=== PATIENT | female | born 1955 | race Caucasian/White ===

== ENCOUNTER 2019-05-10 19:47 | Emergency (ER) | payer MEDICARE, OTHER ==
[2019-05-10] MEDS ORDERED: Ondansetron 4 MG/2 ML SDV IVPUSH ONE (20:56)
[2019-05-10] MEDS ORDERED: fentaNYL 100 MCG/2 ML SDV IVPUSH ONE (20:56)
[2019-05-10] MEDS ORDERED: Sodium Chloride 0.9% 10 ML Syringe FLUSH PRN (20:56)
--- NOTE | 2019-05-10 20:59 | EDM.PDOC ---
ED HPI GENERAL MEDICAL PROBLEM - General Chief Complaint: Gastrointestinal Problem Stated Complaint: NAUSEA,DIZZY,HEADACHE,CHILLS Time Seen by Provider: 05/10/19 20:51 Source of Information: Reports: Patient, Family, RN Notes Reviewed History Limitations: Reports: No Limitations - History of Present Illness INITIAL COMMENTS - FREE TEXT/NARRATIVE: 63-year-old female presents emergency department today complaint of abdominal pain, she states this abdominal pain for the last couple days does wax and wane no change with food no nausea and vomiting no diarrhea no difficulty breathing no shortness of breath has had chills but no fevers since the headache and sore throat, however the sore throat now has resolved abdominal Pain Score (Numeric/FACES): 6 - Related Data Allergies Allergy/AdvReac Type Severity Reaction Status Date / Time erythromycin base Allergy Nausea Verified 05/10/19 20:18 Home Meds: Home Meds Hydrocortisone Acetate [Anucort-HC] 25 mg RECTAL BID PRN 12/03/17 [History] Ketoconazole [Nizoral 2% Crm] 1 applic TOP BID 12/03/17 [History] Past Medical History Cardiovascular History: Reports: Afib Musculoskeletal History: Reports: Back Pain, Chronic, Other (See Below) Other Musculoskeletal History: right hand pain - Past Surgical History Cardiovascular Surgical History: Reports: Other (See Below) Other Cardiovascular Surgeries/Procedures: ablasion GI Surgical History: Reports: Colonoscopy Musculoskeletal Surgical History: Reports: Arthroscopic Knee Oncologic Surgical History: Reports: Other (See Below) Other Oncologic Surgeries/Procedures: precancer noted in colonoscpy Social & Family History - Tobacco Use Smoking Status *Q: Current Every Day Smoker Years of Tobacco use: 35 Packs/Tins Daily: 0.5 - Caffeine Use Caffeine Use: Reports: Coffee, Soda, Tea - Recreational Drug Use Recreational Drug Use: No ED ROS GENERAL - Review of Systems Review Of Systems: See Below Constitutional: Reports: Chills HEENT: Reports: No Symptoms Respiratory: Reports: No Symptoms Cardiovascular: Reports: No Symptoms GI/Abdominal: Reports: Abdominal Pain, Flatus. Denies: Constipation, Diarrhea, Nausea, Vomiting : Reports: No Symptoms Musculoskeletal: Reports: No Symptoms Skin: Reports: No Symptoms ED EXAM, GI/ABD - Physical Exam Exam: See Below Exam Limited By: No Limitations General Appearance: Alert, WD/WN, No Apparent Distress Throat/Mouth: Normal Inspection, Normal Lips, Normal Teeth, Normal Gums, Normal Oropharynx, Normal Voice, No Airway Compromise Head: Atraumatic, Normocephalic Neck: Normal Inspection, Supple, Non-Tender, Full Range of Motion Respiratory/Chest: No Respiratory Distress, Lungs Clear, Normal Breath Sounds, No Accessory Muscle Use, Chest Non-Tender Cardiovascular: Regular Rate, Rhythm, No Murmur GI/Abdominal Exam: Normal Bowel Sounds, Soft, No Organomegaly, No Distention, No Abnormal Bruit, No Mass, Tender (Epigastric region) Course - Vital Signs Last Recorded V/S: Last Vital Signs Temp 97.0 F 05/10/19 20:17 Pulse 67 05/10/19 20:17 Resp 17 05/10/19 20:17 BP 111/56 L 05/10/19 20:17 Pulse Ox 95 05/10/19 20:17 - Orders/Labs/Meds Orders: Active Orders 24 hr Category Date Time Status Peripheral IV Care [RC] . DIRECTED Care 05/10/19 20:57 Active UA W/MICROSCOPIC [URIN] Urgent Lab 05/10/19 23:11 Ordered Iopamidol [Isovue-300 (61%)] Med 05/10/19 22:00 Active 76 ml IV . DIRECTED Lactated Ringers [Ringers, Lactated] 1,000 ml Med 05/10/19 21:00 Active IV ASDIRECTED Sodium Chloride 0.9% [Normal Saline] 80 ml Med 05/10/19 22:00 Active IV ASDIRECTED Sodium Chloride 0.9% [Saline Flush] Med 05/10/19 20:56 Active 10 ml FLUSH ASDIRECTED PRN Peripheral IV Insertion Adult [OM.PC] Urgent Oth 05/10/19 20:56 Ordered Medication Orders Lactated Ringer's (Ringers, Lactated) 1,000 mls @ 999 mls/hr IV ASDIRECTED [facility] Last Admin: 05/10/19 21:16 Dose: 999 mls/hr Sodium Chloride (Normal Saline) 80 mls @ 3 mls/sec IV ASDIRECTED [facility]ANDA Last Admin: 05/10/19 22:26 Dose: 3 mls/sec Iopamidol (Isovue-300 (61%)) 76 ml IV . DIRECTED [facility] Last Admin: 05/10/19 22:26 Dose: 76 ml Sodium Chloride (Saline Flush) 10 ml FLUSH ASDIRECTED PRN PRN Reason: Keep Vein Open Last Admin: 05/10/19 21:16 Dose: 10 ml Labs: Laboratory Tests 05/10/19 05/10/19 05/10/19 Range/Units 21:11 21:11 21:11 WBC 5.1 (4.5-11.0) K/uL RBC 4.54 (3.30-5.50) M/uL Hgb 14.3 (12.0-15.0) g/dL Hct 42.5 (36.0-48.0) % MCV 94 (80-98) fL MCH 32 H (27-31) pg MCHC 34 (32-36) % Plt Count 131 L (150-400) K/uL Neut % (Auto) 86 H (36-66) % Lymph % (Auto) 9 L (24-44) % Whitfield % (Auto) 5 (2-6) % Eos % (Auto) 0 L (2-4) % Baso % (Auto) 0 (0-1) % Sodium 128 L (140-148) mmol/L Potassium 3.9 (3.6-5.2) mmol/L Chloride 94 L (100-108) mmol/L Carbon Dioxide 26 (21-32) mmol/L Anion Gap 11.9 (5.0-14.0) mmol/L BUN 12 (7-18) mg/dL Creatinine 0.8 (0.6-1.0) mg/dL Est Cr Clr Drug Dosing 57.87 mL/min Estimated GFR (MDRD) > 60 (>60) Glucose 96 (74-106) mg/dL Lactic Acid 1.0 (0.4-2.0) mmol/L Calcium 8.2 L (8.5-10.1) mg/dL Total Bilirubin 0.5 (0.2-1.0) mg/dL AST 37 (15-37) U/L ALT 35 (12-78) U/L Alkaline Phosphatase 67 (46-116) U/L Total Protein 6.3 L (6.4-8.2) g/dL Albumin 3.2 L (3.4-5.0) g/dL Globulin 3.1 (2.3-3.5) g/dL Albumin/Globulin Ratio 1.0 L (1.2-2.2) Lipase 104 (73-393) U/L Meds: Medications Generic Name Dose Route Start Last Admin Trade Name Freq PRN Reason Stop Dose Admin Lactated Ringer's 1,000 mls @ 999 mls/hr 05/10/19 21:00 05/10/19 21:16 Ringers, Lactated IV 999 mls/hr ASDIRECTED AMANDA Administration Sodium Chloride 80 mls @ 3 mls/sec 05/10/19 22:00 05/10/19 22:26 Normal Saline IV 3 mls/sec ASDIRECTED AMANDA Administration Iopamidol 76 ml 05/10/19 22:00 05/10/19 22:26 Isovue-300 (61%) IV 76 ml . DIRECTED AMANDA Administration Sodium Chloride 10 ml 05/10/19 20:56 05/10/19 21:16 Saline Flush FLUSH 10 ml ASDIRECTED PRN Administration Keep Vein Open Discontinued Medications Generic Name Dose Route Start Last Admin Trade Name Freq PRN Reason Stop Dose Admin Fentanyl 50 mcg 05/10/19 20:56 05/10/19 21:18 Sublimaze IVPUSH 05/10/19 20:57 50 mcg ONETIME ONE Administration Ondansetron HCl 4 mg 05/10/19 20:56 05/10/19 21:15 Zofran IVPUSH 05/10/19 20:57 4 mg ONETIME ONE Administration Departure - Departure Time of Disposition: 23:21 Disposition: Home, Self-Care 01 Condition: Fair Clinical Impression: Functional constipation - Discharge Information Referrals: Ellyn Haney DO [Primary Care Provider] - Forms: ED Department Discharge Additional Instructions: Try MiraLAX 1 capful per day until loose stools Please followup with your primary care provider in 3-5 days if not better, please call return to the emergency department with worsening of symptoms. - My Orders Last 24 Hours: My Active Orders 05/10/19 20:56 Sodium Chloride 0.9% [Saline Flush] 10 ml FLUSH ASDIRECTED PRN Peripheral IV Insertion Adult [OM.PC] Urgent 05/10/19 20:57 Peripheral IV Care [RC] . DIRECTED 05/10/19 21:00 Lactated Ringers [Ringers, Lactated] 1,000 ml IV ASDIRECTED 05/10/19 22:00 Iopamidol [Isovue-300 (61%)] 76 ml IV . DIRECTED Sodium Chloride 0.9% [Normal Saline] 80 ml IV ASDIRECTED 05/10/19 23:11 UA W/MICROSCOPIC [URIN] Urgent - Assessment/Plan Last 24 Hours: My Active Orders 05/10/19 20:56 Sodium Chloride 0.9% [Saline Flush] 10 ml FLUSH ASDIRECTED PRN Peripheral IV Insertion Adult [OM.PC] Urgent 05/10/19 20:57 Peripheral IV Care [RC] . DIRECTED 05/10/19 21:00 Lactated Ringers [Ringers, Lactated] 1,000 ml IV ASDIRECTED 05/10/19 22:00 Iopamidol [Isovue-300 (61%)] 76 ml IV . DIRECTED Sodium Chloride 0.9% [Normal Saline] 80 ml IV ASDIRECTED 05/10/19 23:11 UA W/MICROSCOPIC [URIN] Urgent Plan: Assessment Acuity = acute Site and laterality = functional constipation Etiology = slow transit time Manifestations = intermittent abdominal pain Location of injury = Home Lab values = CBC unremarkable, sodium low at 128 consistent hyponatremia, CT scan shows no acute process other than large amount stool] Plan I did review lab work CT scan results with her recommend MiraLAX 1 capful per day until loose stools follow-up primary care 3-5 days if not better This note was dictated using [employer] voice recognition software please call with any questions on syntax or grammar.
[2019-05-10] MEDS ORDERED: Lactated Ringers 1,000 ML IV SCH (21:00)
[2019-05-10] MEDS ORDERED: Sodium Chloride 0.9% 80 ML IV SCH (22:00)
[2019-05-10] MEDS ORDERED: Iopamidol 612 MG/ML 100 ML Bottle IV SCH (22:00)
--- NOTE | 2019-05-10 23:03 | CRLCT ---
INDICATION: Epigastric pain TECHNIQUE: CT Abdomen and pelvis with i.v. contrast. Coronal and sagittal reformats were obtained. CONTRAST: 76 mL Isovue 300 COMPARISON: None FINDINGS: Lower chest: Unremarkable. Liver: Scattered small hepatic cysts present with the largest measuring 9 mm. Mild periportal edema is present which may be due to aggressive intravenous hydration. Spleen: Unremarkable. Pancreas: Unremarkable. Gallbladder: Unremarkable. Kidney: There is a cyst present in the lower pole of the left kidney measuring 1.4 cm. Adrenal: Unremarkable. Bowel: Unremarkable. The appendix is not identified. Vascular: Unremarkable. Lymph: Unremarkable. Peritoneum: Unremarkable. No pneumoperitoneum is seen. No significant ascites is noted. Pelvis: Unremarkable. Soft tissue: Unremarkable. Bone: Unremarkable for age. IMPRESSION: 1. Unremarkable with no CT correlate for the patient`s symptoms seen. Dictated by Teddy Willis MD @ 05/10/2019 11:00:53 PM Please note that all CT scans at this facility use dose modulation, iterative reconstruction, and/or weight-based dosing when appropriate to reduce radiation dose to as low as reasonably achievable. Dictated by: Teddy Willis MD @ 05/10/2019 23:00:58 (Electronically Signed)
== END 2019-05-10 23:31 | disposition home or self-care (01) ==
LOC: JP.ED 19:47
DX: K59.04 Chronic idiopathic constipation (principal); F17.210 Nicotine dependence, cigarettes, uncomplicated; Z88.1 Allergy status to other antibiotic agents
CPT/HCPCS: 36415; 74177; 80053; 81001; 83605; 83690; 85025; 96361; 96374; 96375; 99284; J2405; J3010; J7030; J7120; Q9967; 99283

== ENCOUNTER 2019-05-13 06:34 | Day surgery (SDC) | payer MEDICARE ==
[2019-05-13] MEDS ORDERED: Dextrose 5%-Lactated Ringers 1,000 ML IV SCH (07:00)
[2019-05-13] MEDS ORDERED: fentaNYL 100 MCG/2 ML SDV ONE (07:05)
[2019-05-13] MEDS ORDERED: Midazolam 1 MG/ML 2 ML SDV ONE (07:05)
[2019-05-13] MEDS ORDERED: Propofol 200 MG/20 ML SDV ONE (07:05)
[2019-05-13] MEDS ORDERED: Dexamethasone 4 MG/ML SDV ONE (07:33)
[2019-05-13] MEDS ORDERED: Ondansetron 4 MG/2 ML SDV ONE (07:33)
[2019-05-13] MEDS ORDERED: Glycopyrrolate 0.2 MG/ML 2 ML SDV IVPUSH ONE (07:45)
[2019-05-13] MEDS ORDERED: Pantoprazole 40 MG Vial IVPUSH ONE (08:30)
--- NOTE | 2019-05-18 08:40 | OR ---
DATE OF PROCEDURE: 05/13/2019 PREOPERATIVE DIAGNOSES: 1. Epigastric pain. 2. History of colon polyps. POSTOPERATIVE DIAGNOSES: 1. History of epigastric pain with severe erosive antral gastritis and duodenitis. 2. Normal colonoscopic examination with history of previous colonic polyps. OPERATIVE PROCEDURES: 1. Esophagogastroduodenoscopy with antral biopsies for CLOtest. 2. Flexible colonoscopy. ANESTHESIA: IV sedation. INDICATION FOR PROCEDURE: A 63-year-old presenting with ongoing epigastric discomfort. The plan is to proceed with upper GI endoscopy for evaluation of those symptoms. She also has history of colon polyps and will undergo a followup screening colonoscopy. Potential risks of the procedure including bleeding and perforation were discussed, and the patient wishes to proceed. DETAILS OF PROCEDURE: The patient was taken to the operating room and placed in a left lateral decubitus position. IV sedation was administered after which the upper GI endoscope was passed orally through the length of the esophagus into the stomach with retroflexion view of the fundus, thereafter through the pyloric channel and into the proximal duodenum. Findings included normal hypopharynx, larynx, upper esophageal sphincter, and esophageal body. At the EG junction, no significant hiatal hernia was noted nor was there any significant inflammation. Within the stomach proximally, there was some retained bile. As one approached the antrum, the patient was noted to have a quite striking erosive gastritis with several broad erosions present scattered throughout the antrum. These were covered with some fibrinous exudate in some cases as well as some older blood in other cases. As one passed through the pyloric channel, the duodenal bulb was also noted to be affected with quite a bit of duodenitis, but without erosions or ulcers. Beyond the duodenal bulb, the remainder of the duodenal exams at the junction of the third and fourth portions was unremarkable. At this point, biopsies were obtained from the antrum and sent for CLOtest for H pylori. Minimal bleeding from the biopsy site was seen and the procedure then concluded. Attention was then taken to the colonoscopy. Initial digital rectal exam was performed and was unremarkable. The colonoscope was then passed into the rectum with retroflexion revealing uncomplicated hemorrhoidal columns. The scope was eventually passed to the level of the cecum. The prep was generally fairly good with only a small amount of liquid stool present. To that level, the patient was noted to have no areas of diverticular disease. No areas of colitis. No polyps or other signs of neoplasia. The scope was then withdrawn, and the above findings reconfirmed. At this point, the patient will be given Protonix 40 mg IV in the recovery room and then started on Protonix 40 mg daily, #90 with refills x3 being called in. If the patient's H pylori test, i.e., the CLOtest is positive, we will contact her regarding course of antibiotics. Otherwise, with the history of colon polyps and a normal colonic exam today, the patient should have a repeat colonoscopy in 5 years, and she will be instructed to follow up with her personal physician, Dr. Ellyn Haney, in [place] in 3 to 4 weeks. Guanaco Viveros MD /[id number]
== END 2019-05-13 09:43 | disposition home or self-care (01) ==
LOC: JP.SDS 06:34
PROVIDERS: ATTEND Surgery
DX: Z12.11 Encounter for screening for malignant neoplasm of colon (principal); K29.70 Gastritis, unspecified, without bleeding; K29.80 Duodenitis without bleeding; K25.9 Gastric ulcer, unspecified as acute or chronic, without hemorrhage or perforation; K64.9 Unspecified hemorrhoids; I48.91 Unspecified atrial fibrillation; J44.9 Chronic obstructive pulmonary disease, unspecified; F17.200 Nicotine dependence, unspecified, uncomplicated; Z88.1 Allergy status to other antibiotic agents; Z86.010 Personal history of colon polyps
CPT/HCPCS: 43239; 87081; C9113; G0121; J1100; J2250; J2405; J2704; J3490; J7042; J3010

== ENCOUNTER 2019-06-05 14:08 | Emergency (ER) | payer MEDICARE ==
--- NOTE | 2019-06-05 15:22 | EDM.PDOC ---
ED HPI GENERAL MEDICAL PROBLEM - General Chief Complaint: General Stated Complaint: INFECTION ON RIGHT SIDE OF FACE Time Seen by Provider: 06/05/19 14:10 Source of Information: Reports: Patient History Limitations: Reports: No Limitations - History of Present Illness INITIAL COMMENTS - FREE TEXT/NARRATIVE: 63 yr old female with multiple complaints including right ear pain, jaw pain, neck pain, fatigue and weakness. Of these, she says the ear and jaw pain are most concerning. She is not concerned about fatigue or weakness. She has a history of COPD and tobacco use. Her right ear, jaw and neck pain started 2-3 weeks ago with a no known injury. She has very poor dental hygiene with many missing teeth on the bottom and a full denture on top. She notes increased pain with eating/chewing. She denies problems swallowing, talking or breathing. She denies a fever. jaw pain Pain Score (Numeric/FACES): 5 - Related Data Allergies Allergy/AdvReac Type Severity Reaction Status Date / Time doxycycline Allergy Nausea and Verified 06/05/19 14:31 Vomiting erythromycin base Allergy Nausea Verified 06/05/19 14:31 fentanyl Allergy Nausea and Verified 06/05/19 14:31 Vomiting Home Meds: Home Meds Hydrocortisone Acetate [Anucort-HC] 25 mg RECTAL BID PRN 12/03/17 [History] Ketoconazole [Nizoral 2% Crm] 1 applic TOP BID 12/03/17 [History] Acetaminophen [Tylenol Extra Strength] 1,000 mg PO ASDIRECTED PRN 05/13/19 [ History] RABEprazole Sodium [Rabeprazole Sodium] 20 mg PO DAILY 06/05/19 [History] Past Medical History HEENT History: Reports: Cataract, Impaired Vision Cardiovascular History: Reports: Afib, Heart Murmur Respiratory History: Reports: COPD Gastrointestinal History: Reports: Colon Polyp 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: Musculoskeletal History: Reports: Back Pain, Chronic, Other (See Below) Other Musculoskeletal History: right hand pain Oncologic (Cancer) History: Reports: Other (See Below) Other Oncologic History: SKIN CANCER Dermatologic History: Reports: Other (See Below) Other Dermatologic History: PRE CANCER CELLS ON BODY - Infectious Disease History Infectious Disease History: Reports: Chicken Pox, Measles, Mumps, Rubella, Shingles - Past Surgical History Cardiovascular Surgical History: Reports: Other (See Below) Other Cardiovascular Surgeries/Procedures: ablasion Respiratory Surgical History: Reports: None GI Surgical History: Reports: Appendectomy, Colonoscopy Neurological Surgical History: Reports: Spinal Fusion Musculoskeletal Surgical History: Reports: Arthroscopic Knee Other Musculoskeletal Surgeries/Procedures:: CERVICAL FUSION Oncologic Surgical History: Reports: Other (See Below) Other Oncologic Surgeries/Procedures: precancer noted in colonoscpy Dermatological Surgical History: Reports: Skin Biopsy Social & Family History - Family History Family Medical History: Noncontributory - Tobacco Use Smoking Status *Q: Current Every Day Smoker Years of Tobacco use: 40 Packs/Tins Daily: 1 - Caffeine Use Caffeine Use: Reports: Coffee, Soda - Recreational Drug Use Recreational Drug Use: No ED ROS GENERAL - Review of Systems Review Of Systems: See Below Constitutional: Reports: Weakness, Fatigue. Denies: Fever, Chills, Diaphoresis HEENT: Reports: Dental Pain, Ear Pain, Throat Pain. Denies: Throat Swelling Respiratory: Reports: No Symptoms Cardiovascular: Reports: No Symptoms Musculoskeletal: Reports: Neck Pain Neurological: Reports: Headache ED EXAM, GENERAL - Physical Exam Exam: See Below Exam Limited By: No Limitations General Appearance: Alert, WD/WN, No Apparent Distress Ears: Normal External Exam, Normal Canal, Normal TMs Head: Other (Tenderness ove the right TMJ. No swelling in the head and neck area. Oropharynx is normal appearing. ) Neck: Normal Inspection, Supple, Full Range of Motion. No: Limited Range of Motion, Lymphadenopathy (R), Lymphadenopathy (L) Respiratory/Chest: No Respiratory Distress, Lungs Clear, Normal Breath Sounds Cardiovascular: Regular Rate, Rhythm, No Edema, No Gallop, No JVD, No Murmur Neurological: Alert, Oriented, Normal Cognition Skin Exam: Warm, Dry Lymphatic: No Adenopathy Course - Vital Signs Last Recorded V/S: Last Vital Signs Temp 36.3 C 06/05/19 14:30 Pulse 102 H 06/05/19 14:30 Resp 16 06/05/19 14:30 BP 112/63 06/05/19 14:30 Pulse Ox 92 L 06/05/19 14:30 - Re-Assessments/Exams Free Text/Narrative Re-Assessment/Exam: 06/05/19 15:30 The history and exam was done. She is most tender over the right TMJ. She has no sign of deep space infection. She has Myofascial TMJ problems and needs to see a dentist for evaluation and treatment. I gave her a Rx for Amoxicillin 875 mg BID to cover for dental infection. She will f/u with her dentist and pcp and return to the ER if she has problems or concerns. Departure - Departure Time of Disposition: 15:15 Disposition: Home, Self-Care 01 Condition: Good Clinical Impression: Mouth pain - Discharge Information *PRESCRIPTION DRUG MONITORING PROGRAM REVIEWED*: Not Applicable *COPY OF PRESCRIPTION DRUG MONITORING REPORT IN PATIENT JEANNE: Not Applicable Referrals: PCP,None [Primary Care Provider] - Forms: ED Department Discharge Additional Instructions: Take Amoxicillin as prescribed. See your dentist in the near future. Take Tylenol as needed for pain. Return to the ER as needed.
== END 2019-06-05 15:32 | disposition home or self-care (01) ==
LOC: JP.ED 14:08
DX: K13.79 Other lesions of oral mucosa (principal); I48.91 Unspecified atrial fibrillation; J44.9 Chronic obstructive pulmonary disease, unspecified; F17.210 Nicotine dependence, cigarettes, uncomplicated; Z88.1 Allergy status to other antibiotic agents; Z88.6 Allergy status to analgesic agent; Z79.899 Other long term (current) drug therapy; Z85.828 Personal history of other malignant neoplasm of skin
CPT/HCPCS: 99283

== ENCOUNTER 2023-01-23 08:03 | Day surgery (SDC) | payer MEDICARE ==
[~2023-01-23 08:03] MED LIST: Sodium Chloride 0.9% 1,000 ML IV SCH
[2023-01-23] MEDS ORDERED: Propofol 200 MG/20 ML SDV ONE (08:21)
[2023-01-23] MEDS ORDERED: Dexamethasone 4 MG/ML SDV ONE (08:21)
[2023-01-23] MEDS ORDERED: Ondansetron 4 MG/2 ML SDV ONE (08:21)
== END 2023-01-23 09:53 | disposition home or self-care (01) ==
LOC: JP.SDS 08:03
PROVIDERS: ATTEND Surgery
DX: K21.00 Gastro-esophageal reflux disease with esophagitis, without bleeding (principal); F17.200 Nicotine dependence, unspecified, uncomplicated; Z87.19 Personal history of other diseases of the digestive system; Z79.899 Other long term (current) drug therapy; Z88.8 Allergy status to other drugs, medicaments and biological substances
CPT/HCPCS: 43239; J1100; J2405; J2704; J7030; 88305

== ENCOUNTER 2024-01-07 07:25 | Day surgery (SDC) | payer MEDICARE ==
[2024-01-07] MEDS ORDERED: Propofol 200 MG/20 ML SDV ONE ×2 (07:40→09:09)
[2024-01-07] MEDS ORDERED: fentaNYL 100 MCG/2 ML SDV ONE (07:40)
[2024-01-07] MEDS ORDERED: Ondansetron 4 MG/2 ML SDV ONE (08:03)
[2024-01-07] MEDS ORDERED: Midazolam 1 MG/ML 2 ML SDV ONE (08:07)
[2024-01-07] MEDS: Lactated Ringers 1,000 ML IV SCH (08:20)
== END 2024-01-07 10:38 | disposition home or self-care (01) ==
LOC: JP.SDS 07:25
PROVIDERS: ATTEND Student in an Organized Health Care Education/Training Program
DX: Z12.11 Encounter for screening for malignant neoplasm of colon (principal); Z86.010 Personal history of colon polyps; J44.9 Chronic obstructive pulmonary disease, unspecified; K21.9 Gastro-esophageal reflux disease without esophagitis
CPT/HCPCS: G0105; J2250; J2405; J2704; J7120; J3010

== ENCOUNTER 2025-06-05 16:58 | Emergency (ER) | payer MEDICARE, OTHER ==
[2025-06-05 18:58] LABS: APPEARANCE,URINE SLIGHTLY CLOUDY (CLEAR); GLUCOSE,URINE NEGATIVE (NEGATIVE); OCCULT BLOOD,URINE SMALL (NEGATIVE)
[2025-06-05 19:08] LABS: SQUAMOUS EPITHELIAL CELLS,UR RARE /HPF; UROTHELIAL CELLS,URINE RARE /HPF
[2025-06-05] MEDS: Nitrofurantoin Monohydrate/Macrocrystalline 100 MG Cap PO ONE (19:39)
== END 2025-06-05 19:48 | disposition home or self-care (01) ==
LOC: JP.ED 16:58
DX: N39.0 Urinary tract infection, site not specified (principal); I48.91 Unspecified atrial fibrillation; E78.00 Pure hypercholesterolemia, unspecified; J44.9 Chronic obstructive pulmonary disease, unspecified; F17.210 Nicotine dependence, cigarettes, uncomplicated; Z88.1 Allergy status to other antibiotic agents; Z88.8 Allergy status to other drugs, medicaments and biological substances; Z79.899 Other long term (current) drug therapy
CPT/HCPCS: 81001; 87086; 87088; 87186; 99283; A9270-GY